=== PATIENT | male | born 1950 | race Caucasian/White ===

== ENCOUNTER 2019-08-07 15:00 | Outpatient (RCR) | payer BC | END 2019-08-16 15:31 | disposition home or self-care (01) | LOC: WSPT 15:00 | DX: M48.061 Spinal stenosis, lumbar region without neurogenic claudication (principal); M47.26 Other spondylosis with radiculopathy, lumbar region; M51.16 Intervertebral disc disorders with radiculopathy, lumbar region; M99.83 Other biomechanical lesions of lumbar region ==

== ENCOUNTER → 2019-08-27 | Outpatient (CLI) | payer BC | LOC: MHCPAIN 15:08 | DX: M47.817 Spondylosis without myelopathy or radiculopathy, lumbosacral region (principal); M54.5 Low back pain; M53.3 Sacrococcygeal disorders, not elsewhere classified; G89.29 Other chronic pain | CPT/HCPCS: G0463 ==

== ENCOUNTER → 2019-08-29 | Outpatient (CLI) | payer BC | LOC: MHCPAIN 12:05 | DX: M47.818 Spondylosis without myelopathy or radiculopathy, sacral and sacrococcygeal region (principal); M53.3 Sacrococcygeal disorders, not elsewhere classified | CPT/HCPCS: A9585; G0260; J1040 ==

== ENCOUNTER → 2019-09-11 | Outpatient (CLI) | payer BC | LOC: MHCPAIN 10:43 | DX: M47.817 Spondylosis without myelopathy or radiculopathy, lumbosacral region (principal); M53.3 Sacrococcygeal disorders, not elsewhere classified; M54.5 Low back pain; G89.29 Other chronic pain; M54.16 Radiculopathy, lumbar region | CPT/HCPCS: G0463 ==

== ENCOUNTER → 2019-09-19 | Outpatient (CLI) | payer BC | LOC: MHCPAIN 12:34 | DX: M47.817 Spondylosis without myelopathy or radiculopathy, lumbosacral region (principal); M53.3 Sacrococcygeal disorders, not elsewhere classified; M54.5 Low back pain | CPT/HCPCS: A9585; J1100; Q9967 ==

== ENCOUNTER → 2019-10-01 | Outpatient (CLI) | payer BC | LOC: MHCPAIN 14:42 | DX: M47.817 Spondylosis without myelopathy or radiculopathy, lumbosacral region (principal); M54.5 Low back pain; M53.3 Sacrococcygeal disorders, not elsewhere classified; G89.29 Other chronic pain; M54.16 Radiculopathy, lumbar region | CPT/HCPCS: G0463 ==

== ENCOUNTER → 2019-12-26 | Outpatient (CLI) | payer MEDICARE, OTHER | LOC: COL.RAD 07:47 | DX: Z01.812 Encounter for preprocedural laboratory examination (principal); Q76.49 Other congenital malformations of spine, not associated with scoliosis; M51.25 Other intervertebral disc displacement, thoracolumbar region; M51.36 Other intervertebral disc degeneration, lumbar region; M48.061 Spinal stenosis, lumbar region without neurogenic claudication; M47.819 Spondylosis without myelopathy or radiculopathy, site unspecified | CPT/HCPCS: A9585 ==

== ENCOUNTER → 2021-06-09 | Outpatient (CLI) | payer MEDICARE | LOC: MHCPAIN 13:16 | DX: M53.3 Sacrococcygeal disorders, not elsewhere classified (principal); M54.17 Radiculopathy, lumbosacral region; M47.816 Spondylosis without myelopathy or radiculopathy, lumbar region; M79.2 Neuralgia and neuritis, unspecified | CPT/HCPCS: G0463 ==

== ENCOUNTER → 2021-07-05 | Outpatient (CLI) | payer MEDICARE | LOC: MHCPAIN 11:00 | DX: M47.817 Spondylosis without myelopathy or radiculopathy, lumbosacral region (principal); M53.3 Sacrococcygeal disorders, not elsewhere classified; M54.16 Radiculopathy, lumbar region; G89.29 Other chronic pain | CPT/HCPCS: G0463 ==

== ENCOUNTER → 2021-07-22 | Outpatient (CLI) | payer MEDICARE | LOC: MHCPAIN 13:06 | DX: M47.817 Spondylosis without myelopathy or radiculopathy, lumbosacral region (principal); M53.3 Sacrococcygeal disorders, not elsewhere classified; M54.17 Radiculopathy, lumbosacral region | CPT/HCPCS: J1100; Q9967 ==

== ENCOUNTER → 2021-08-10 | Outpatient (CLI) | payer MEDICARE | LOC: MHCPAIN 13:22 | DX: M47.816 Spondylosis without myelopathy or radiculopathy, lumbar region (principal); M54.16 Radiculopathy, lumbar region; M53.3 Sacrococcygeal disorders, not elsewhere classified | CPT/HCPCS: G0463 ==

== ENCOUNTER → 2021-11-16 | Outpatient (CLI) | payer MEDICARE | LOC: MHCPAIN 13:27 | DX: M47.896 Other spondylosis, lumbar region (principal); M54.16 Radiculopathy, lumbar region; M79.2 Neuralgia and neuritis, unspecified | CPT/HCPCS: G0463 ==

== ENCOUNTER → 2022-03-21 | Outpatient (CLI) | payer MEDICARE | LOC: MHCPAIN 14:43 | DX: M47.817 Spondylosis without myelopathy or radiculopathy, lumbosacral region (principal); M53.3 Sacrococcygeal disorders, not elsewhere classified; M54.17 Radiculopathy, lumbosacral region | CPT/HCPCS: J1040; Q9967 ==

== ENCOUNTER → 2022-04-19 | Outpatient (CLI) | payer MEDICARE | LOC: MHCPAIN 14:31 | DX: M47.896 Other spondylosis, lumbar region (principal); M54.16 Radiculopathy, lumbar region; M79.2 Neuralgia and neuritis, unspecified | CPT/HCPCS: G0463 ==

== ENCOUNTER → 2023-01-17 | Outpatient (CLI) | payer MEDICARE | LOC: MHCPAIN 12:32 | DX: M54.50 Low back pain, unspecified (principal); M53.3 Sacrococcygeal disorders, not elsewhere classified; M79.2 Neuralgia and neuritis, unspecified; M48.061 Spinal stenosis, lumbar region without neurogenic claudication; M47.817 Spondylosis without myelopathy or radiculopathy, lumbosacral region ==

== ENCOUNTER → 2023-03-01 | Outpatient (CLI) | payer MEDICARE | LOC: MHCPAIN 13:21 | DX: M79.2 Neuralgia and neuritis, unspecified (principal); M54.16 Radiculopathy, lumbar region | CPT/HCPCS: G0463 ==

== ENCOUNTER → 2023-04-19 | Outpatient (CLI) | payer MEDICARE | LOC: MHCPAIN 14:59 | DX: M54.50 Low back pain, unspecified (principal); M53.3 Sacrococcygeal disorders, not elsewhere classified; M25.562 Pain in left knee; M47.896 Other spondylosis, lumbar region | CPT/HCPCS: G0463 ==

== ENCOUNTER → 2023-06-21 | Outpatient (CLI) | payer MEDICARE ==
[2023-06-21 15:29] LABS: BASO # 0.1 K/mm3 (0.0-0.2); EOS # 0.2 K/mm3 (0.0-0.7); EOS % 4.1 % (0.0-4.0); GRAN # 1.9 K/mm3 (1.4-6.5); GRAN % 39.6 % (42.2-75.2); HEMOGLOBIN 14.3 g/dl (13.5-18.0); LYMPH # 2.3 K/mm3 (1.2-3.4); LYMPH % 47.9 % (20.0-51.0); MEAN CELL VOLUME 90 fl (80.0-100.0); MEAN CORPUSCULAR HEMOGLOBIN 31 pg (27-31); MEAN CORPUSCULAR HGB CONC 34 g/dl (33.0-37.0); MONO # 0.4 K/mm3 (0.1-0.6); MONO % 7.2 % (1.7-9.3); PLATELET COUNT 198 K/mm3 (130-400); RED BLOOD COUNT 4.67 M/mm3 (4.20-5.60)
[2023-06-21 15:36] LABS: PROTHROMBIN TIME 11.2 SECONDS (9.7-12.8)
== END ==
LOC: COL.LAB 14:24
PROVIDERS: Anesthesiology Pain Medicine
DX: M54.16 Radiculopathy, lumbar region (principal)

== ENCOUNTER → 2023-08-09 | Outpatient (CLI) | payer MEDICARE ==
[~2023-08-09] MED LIST: CEPHALEXIN500 M1 PO; IMITREX100 MG PO; MOTRIN 800800 MG/TAB PO; NEURONTIN300 MG/CAP PO
== END ==
LOC: MHCPAIN 12:59
DX: M54.16 Radiculopathy, lumbar region (principal); M25.562 Pain in left knee; Z96.651 Presence of right artificial knee joint
CPT/HCPCS: G0463

== ENCOUNTER 2023-08-31 10:55 | Emergency (ER) | payer MEDICARE ==
[~2023-08-31] VITALS: Ht 182.9 cm; Wt 113.6 kg
[2023-08-31] MEDS ORDERED: Oxybutynin 5 MG TAB PO ONE (12:45)
[2023-08-31] MEDS ORDERED: LEVSIN 0.10.125 MG/T PO (13:34)
[2023-08-31] MEDS ORDERED: Hyoscyamine 0.125 MG Sublingual TAB SL ONE (13:45)
[2023-08-31 14:28] VITALS: BP 152/99; PULSE 78; TEMP 97.3
== END 2023-08-31 14:28 | disposition home or self-care (01) ==
LOC: COL.ER 10:55
DX: R31.0 Gross hematuria (principal); R10.30 Lower abdominal pain, unspecified; Z85.51 Personal history of malignant neoplasm of bladder

== ENCOUNTER 2023-10-10 06:57 | Day surgery (SDC) | payer MEDICARE ==
[~2023-10-10] VITALS: Ht 182.9 cm; Wt 115.4 kg
[~2023-10-10 06:57] MED LIST changes: +LEVSIN 0.10.125 MG/T PO; +LR 1,000 ML IV SCH
[2023-10-10 08:29] VITALS: BP 130/73; PULSE 57; TEMP 98.5
[2023-10-10] MEDS ORDERED: Lidocaine PF 2% (20 MG/ML) 5 ML VIAL SQ ONE (09:05)
[2023-10-10 09:40] VITALS: BP 120/74; PULSE 50; TEMP 96.6
[2023-10-10 10:00] VITALS: BP 136/81; PULSE 49
[2023-10-10] MEDS ORDERED: Acetaminophen 325 MG TAB PO PRN (10:00)
[2023-10-10] MEDS ORDERED: Ondansetron 4 MG/2 ML VIAL IV PRN (10:00)
[2023-10-10] MEDS ORDERED: Morphine 4 MG/ML VIAL IV PRN (10:00)
--- NOTE | 2023-10-10 10:40 | NUR ---
0940- PT RETURNS FROM OR VIA CART TO [facility]. MONITORS ON AND ALARMS SET. CALL LIGHT IN REACH. REPORT RECIEVED FROM CATHIE SUNSHINE AND PEPE SHANNON. PT ALERT AND ORIENTED. PT REQUESTS FOOD. PT DENIES ANY PAIN OR NAUSEA. 1000- PT TAKING FOOD WELL. NO COMPLICATIONS NOTED. PT AMBULATED TO BATHROOM. 1010- DISCHARGE INSTRUCTIONS GIVEN TO PT. ALL QUESTIONS ANSWERED. 1030- PT TRANSFERRED OUT OF THE HOSPITAL VIA WHEELCHAIR AND ASSIST TO PRIVATE VEHICLE DRIVEN BY .
[2023-10-11] MEDS ORDERED: IMITREX100 MG PO (07:56)
[2023-10-11] MEDS ORDERED: ADVIL200 MG PO (07:57)
[2023-10-11] MEDS ORDERED: TYLENOL 500MG500 MG PO (07:57)
[2023-10-11] MEDS ORDERED: SALONPAS1 EACH TP (07:58)
== END 2023-10-10 10:30 | disposition home or self-care (01) ==
LOC: SDCO 06:57
DX: Z45.2 Encounter for adjustment and management of vascular access device (principal); C67.9 Malignant neoplasm of bladder, unspecified; G47.33 Obstructive sleep apnea (adult) (pediatric)
CPT/HCPCS: C1788; J0690; J2704; J7120

== ENCOUNTER 2023-10-11 07:16 | Day surgery (SDC) | payer MEDICARE ==
[2023-10-11] VITALS (14 sets, daily range): BP systolic 110–153; BP diastolic 63–90; PULSE 51–70; TEMP 97.6–98.1
[~2023-10-11] VITALS: Ht 193 cm; Wt 113.0 kg
[~2023-10-11 07:16] MED LIST changes: -LR 1,000 ML IV SCH
[2023-10-11] MEDS ORDERED: ceFAZolin 2 G in Water For Injection,Sterile 20 ML IV SCH ×2 (07:30→12:30)
[2023-10-11] MEDS ORDERED: 1/2 NS 1,000 ML IV SCH (07:30)
[2023-10-11] MEDS ORDERED: IMITREX100 MG PO (07:56)
[2023-10-11] MEDS ORDERED: TYLENOL 500MG500 MG PO (07:57)
[2023-10-11] MEDS ORDERED: ADVIL200 MG PO (07:57)
[2023-10-11 07:58] LABS: HEMATOCRIT 40.1 % (42.0-52.0); HEMOGLOBIN 13.5 g/dl (13.5-18.0); MEAN CELL VOLUME 90 fl (80.0-100.0); MEAN CORPUSCULAR HEMOGLOBIN 30 pg (27-31); MEAN CORPUSCULAR HGB CONC 34 g/dl (33.0-37.0); MEAN PLATELET VOLUME 10.9 fl (7.4-10.4); PLATELET COUNT 177 K/mm3 (130-400); RED BLOOD COUNT 4.48 M/mm3 (4.20-5.60); REDCELL DISTRIBUTION WIDTH-CV 13.1 % (11.5-14.5)
[2023-10-11] MEDS ORDERED: SALONPAS1 EACH TP (07:58)
[2023-10-11 08:01] LABS: PROTHROMBIN TIME 11.1 SECONDS (9.7-12.8)
--- NOTE | 2023-10-11 09:14 | NUR ---
Pt to procedure,report to CATHIE Mcgregor.
[2023-10-11 09:26] LABS: CALCIUM 9.4 mg/dL (8.4-10.2); POTASSIUM 4.1 mEq/L (3.5-4.5)
[2023-10-11] MEDS ORDERED: NS 1,000 ML IV.SOLN. IR SCH (09:34)
[2023-10-11] MEDS ORDERED: Topical Skin Adhesive 1 EACH (1 ML) TOP ONE (09:35)
[2023-10-11] MEDS ORDERED: fentaNYL 50 MCG/ML 2 ML VIAL IV SCH (10:35)
[2023-10-11] MEDS ORDERED: Midazolam 2 MG/2 ML VIAL IV SCH (10:36)
--- NOTE | 2023-10-11 10:38 | NUR ---
Please see merge document for record of pacemaker implant and loop removal with Dr. Oliveros
[2023-10-11] MEDS ORDERED: Bisacodyl 5 MG TAB PO PRN (11:15)
[2023-10-11] MEDS ORDERED: Lidocaine 4% Topical Patch TP PRN (11:15)
--- NOTE | 2023-10-11 11:20 | NUR ---
Patient arrived to the medical unit, room 357. Alert and oriented x 4. Some HTN 151/91. Telemetry in place, RA. Sling in place. Post op VS stared.
--- NOTE | 2023-10-11 11:23 | NUR ---
Karl is transferred to medical 357 after pacemaker implant and loop removal with Dr. Oliveros. Dressings to loop and pacer site are clean dry and intact, no evidence of bleeding. Karl is awake and alert, pwd with reg and unlabored respirations. Prema is at bs. He is hooked up for post procedure vitals and ice pack applied to pacer site. bs report and handoff of care to Gali BRAND.
[2023-10-11] MEDS ORDERED: SUMAtriptan 25 MG TAB PO PRN (12:00)
[2023-10-11] MEDS ORDERED: Magnes Hydrox (MOM) 80 MG/ML 30 ML CUP PO PRN (12:00)
[2023-10-11] MEDS ORDERED: Ondansetron 4 MG/2 ML VIAL IV PRN (12:00)
[2023-10-11] MEDS ORDERED: Ibuprofen 800 MG TAB PO PRN (12:00)
[2023-10-11] MEDS ORDERED: Acetaminophen 500 MG TAB PO PRN ×2 (12:00)
--- NOTE | 2023-10-11 20:09 | NUR ---
Patient assessed at this time, see shift assessment, A/Ox4, dressings to chest clean, dry and intact, reports pain to the surgical site (chest),medicated with ibuprofen, denies further needs, call light and personal items within reach, will continue to monitor.
[2023-10-11] MEDS ORDERED: Cephalexin 500 MG CAP PO SCH (21:00)
[2023-10-11] MEDS ORDERED: Melatonin 3 MG TAB PO PRN (21:00)
[2023-10-12] VITALS (7 sets, daily range): BP systolic 103–117; BP diastolic 69–77; PULSE 62–63; TEMP 97.4–98.4
--- NOTE | 2023-10-12 05:06 | NUR ---
Patient had an uneventful night, reports his pain is minimal, denies further needs.
--- NOTE | 2023-10-12 08:22 | NUR ---
Patient is in chair, alert and oriented x 4, states he can't sleep in the bed because of his back pain, spent all night in the chair. Denies any pain or discomfort. Pacemaker downloaded. Chest xray and EKG done. Awaiting for heel seam rubber to let him go home. Assessment completed. No further needs at this time. Call light within reach.
--- NOTE | 2023-10-12 10:08 | NUR ---
Initial visit; Patient and family member states he is doing well and commented on the great care he has received while he has been here. Dr's seem to have time for their patients and everyone else is so friendly, helpful and caring. 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
[2023-10-12] MEDS ORDERED: CEPHALEXIN500 M1 PO (12:39)
--- NOTE | 2023-10-12 13:29 | NUR ---
Patient was provided with discharge information, all questions answered. IV access and telemetry were discontinued. Pt taken to the entrance by wheelchair.
[2023-10-12] MEDS ORDERED: Cephalexin 500 MG CAP PO SCH (21:00)
== END 2023-10-12 13:15 | disposition home or self-care (01) ==
LOC: COL.CAR 07:16 → MEDICAL 11:15 → COL.CAR 10-12 13:15
PROVIDERS: Internal Medicine Cardiovascular Disease
DX: R00.1 Bradycardia, unspecified (principal); Z45.09 Encounter for adjustment and management of other cardiac device
CPT/HCPCS: OP; C1785; C1898; J0665-JZ; J0688; J0690; J2250; J3010; J7030